=== PATIENT | female | born 2000 | race Caucasian/White ===

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

== ENCOUNTER 2021-04-03 17:58 | Emergency (ER) | payer MEDICAID ==
[2021-04-03] MEDS ORDERED: Sodium Chloride 0.9% 1,000 ML IV ONE (18:53)
[2021-04-03] MEDS ORDERED: Metoclopramide 10 MG/2 ML SDV IVPUSH ONE (18:53)
[2021-04-03] MEDS ORDERED: HYDROmorphone 0.5 MG/0.5 ML Syringe IVPUSH ONE (18:53)
[2021-04-03] MEDS ORDERED: diphenhydrAMINE 50 MG/ML SDV IVPUSH ONE (18:53)
--- NOTE | 2021-04-03 19:55 | EDM.PDOC ---
ED HPI GENERAL MEDICAL PROBLEM - General Chief Complaint: Headache Stated Complaint: MIGRAINE Time Seen by Provider: 04/03/21 18:36 Source of Information: Reports: Patient History Limitations: Reports: No Limitations - History of Present Illness INITIAL COMMENTS - FREE TEXT/NARRATIVE: 21-year-old female presents the emergency department today with complaints of migraine headache that started 5 hours ago. Patient states that she took some Tylenol and has been laying in a dark room with no relief. She states that she does have a history of migraine headaches and it is located on the right side of her head which is typical. She does have photophobia and some phonophobia. She states that she had brief loss of speech earlier today when talking on the telephone which is not normal with her migraine headaches. Patient is in her third trimester and states she is 35 weeks today. She states that her headaches eased up during her second trimester however they have been the worst of recent. She states she is otherwise healthy and has had a healthy thus far. 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 - Physical Exam Exam: See Below Exam Limited By: No Limitations General Appearance: Alert, WD/WN, No Apparent Distress Eye Exam: Bilateral Eye: EOMI, PERRL Ears: Normal External Exam, Hearing Grossly Normal Nose: Normal Inspection Throat/Mouth: Normal Inspection, Normal Lips, Normal Voice, No Airway Compromise Head Exam: Atraumatic, Normocephalic Neck: Normal Inspection, Supple Respiratory/Chest: No Respiratory Distress, Lungs Clear, Normal Breath Sounds, No Accessory Muscle Use, Chest Non-Tender Cardiovascular: Normal Peripheral Pulses, Regular Rate, Rhythm, No Edema, No Murmur GI/Abdominal: Normal Bowel Sounds (Female) Exam: Deferred Rectal (Female) Exam: Deferred Neuro Exam (Abbreviated): Alert, Oriented, CN II-XII Intact, Normal Cognition Back Exam: Normal Inspection Extremities: Normal Inspection, Normal Range of Motion, Non-Tender, No Pedal Edema, Normal Capillary Refill Psychiatric: Normal Affect, Normal Mood Skin Exam: Warm, Dry, Intact, Normal Color, No Rash Course - Vital Signs Text/Narrative:: As stated above, patient presents with a migraine headache located in the right frontal/temporal area. She states she does have photophobia, phonophobia and floaters noted. Complete neuro exam is unremarkable. Discussed with the patient the fact that due to the changes in the symptoms of her migraines normally we would CT scan her head however due to the fact that she is 35 weeks she elects not to have this completed due to the risks of radiation exposure to the unborn child. Physical exam is otherwise unremarkable and she is hemodynamically stable. Will medicate the patient with a liter of normal saline, Benadryl, Reglan and Dilaudid. Last Recorded V/S: Last Vital Signs Temp 97.5 F 04/03/21 18:23 Pulse 97 04/03/21 18:23 Resp 18 04/03/21 18:23 BP 116/71 04/03/21 18:23 Pulse Ox 95 04/03/21 18:23 - Orders/Labs/Meds Orders: Active Orders 24 hr Category Date Time Status UA RFX CATHRYN AND CULT IF INDIC [URIN] Stat Lab 04/03/21 19:01 Ordered Magnesium Sulfate/Water [Magnesium Sulfate in Water 4 Med 04/03/21 20:30 Active GM/50 ML] 4 gm Premix Bag 1 bag IV ONETIME Medication Orders Magnesium Sulfate 4 gm/ Premix 50 mls @ 12.5 mls/hr IV ONETIME ONE Stop: 04/04/21 00:29 Last Admin: 04/03/21 20:38 Dose: 12.5 mls/hr Documented by: CARY Labs: Laboratory Tests 04/03/21 04/03/21 Range/Units 18:55 18:55 WBC 9.92 (3.98-10.04) K/mm3 RBC 3.85 L (3.98-5.22) M/mm3 Hgb 11.8 (11.2-15.7) gm/dl Hct 36.5 (34.1-44.9) % MCV 94.8 D (79.4-94.8) fl MCH 30.6 (25.6-32.2) pg MCHC 32.3 (32.2-35.5) g/dl RDW Std Deviation 41.9 (36.4-46.3) fL Plt Count 199 (182-369) K/mm3 MPV 9.9 (9.4-12.3) fl Neut % (Auto) 67.7 (34.0-71.1) % Lymph % (Auto) 18.4 L (19.3-51.7) % [place] % (Auto) 10.4 (4.7-12.5) % Eos % (Auto) 2.9 (0.7-5.8) Baso % (Auto) 0.1 (0.1-1.2) % Neut # (Auto) 6.71 H (1.56-6.13) K/mm3 Lymph # (Auto) 1.83 (1.18-3.74) K/mm3 [place] # (Auto) 1.03 H (0.24-0.36) K/mm3 Eos # (Auto) 0.29 (0.04-0.36) K/mm3 Baso # (Auto) 0.01 (0.01-0.08) K/mm3 Sodium 138 (136-145) mEq/L Potassium 3.5 (3.5-5.1) mEq/L Chloride 104 (98-107) mEq/L Carbon Dioxide 23 (21-32) mEq/L Anion Gap 14.5 (5-15) BUN 7 (7-18) mg/dL Creatinine 0.5 L (0.55-1.02) mg/dL Est Cr Clr Drug Dosing 194.08 mL/min Estimated GFR (MDRD) > 60 (>60) mL/min BUN/Creatinine Ratio 14.0 (14-18) Glucose 74 (70-99) mg/dL Calcium 8.0 L (8.5-10.1) mg/dL Magnesium 1.5 L (1.8-2.4) mg/dL Total Bilirubin 0.3 (0.2-1.0) mg/dL AST 12 L (15-37) U/L ALT 12 L (14-59) U/L Alkaline Phosphatase 83 (46-116) U/L Total Protein 5.9 L (6.4-8.2) g/dl Albumin 2.6 L (3.4-5.0) g/dl Globulin 3.3 gm/dL Albumin/Globulin Ratio 0.8 L (1-2) Meds: Medications Generic Name Dose Route Start Last Admin Trade Name Freq PRN Reason Stop Dose Admin Magnesium Sulfate 4 gm/ Premix 50 mls @ 12.5 mls/hr 04/03/21 20:30 04/03/21 20:38 IV 04/04/21 00:29 12.5 mls/hr ONETIME ONE Administration Discontinued Medications Generic Name Dose Route Start Last Admin Trade Name Freq PRN Reason Stop Dose Admin Calcium Carbonate/Glycine 1,000 mg 04/03/21 20:39 04/03/21 21:06 Calcium Carbonate 500 Mg Tab.Chew PO 04/03/21 20:40 1,000 mg ONETIME ONE Administration Diphenhydramine HCl 25 mg 04/03/21 18:53 04/03/21 19:31 Diphenhydramine 50 Mg/Ml Sdv IVPUSH 04/03/21 18:54 25 mg ONETIME ONE Administration Hydromorphone HCl 0.5 mg 04/03/21 18:53 04/03/21 19:32 Hydromorphone 0.5 Mg/0.5 Ml Syringe IVPUSH 04/03/21 18:54 0.5 mg ONETIME ONE Administration Sodium Chloride 1,000 mls @ 999 mls/hr 04/03/21 18:53 04/03/21 19:30 Normal Saline IV 04/03/21 19:53 999 mls/hr ONETIME ONE Administration Metoclopramide HCl 5 mg 04/03/21 18:53 04/03/21 19:30 Metoclopramide 10 Mg/2 Ml Sdv IVPUSH 04/03/21 18:54 5 mg ONETIME ONE Administration - Re-Assessments/Exams Free Text/Narrative Re-Assessment/Exam: 04/03/21 20:41 Hematology is essentially unremarkable Chemistry reveals sodium of 138, potassium 3.5, BUN 7, creatinine 0.5, GFR greater than 60, glucose 74, magnesium 1.5 Patient states her headache pain is down to 2 out of 10 and she is feeling much better. We will medicate the patient with 4 g of mag IV and then allow her to be discharged home. Departure - Departure Time of Disposition: 22:46 Disposition: Home, Self-Care 01 Condition: Good Clinical Impression: Migraine, Hypomagnesemia - Discharge Information Instructions: Migraine Headache, [id number], Hypomagnesemia Referrals: Elaine Shaffer PA-C [Primary Care Provider] - Forms: ED Department Discharge Additional Instructions: You were seen in the emergency department today with a migraine headache. Lab studies were completed. He received IV fluids and medications to abort your headache which did seem to help. Lab studies revealed that your magnesium level was significantly low. You did receive IV magnesium replacement today. Recommend eating a diet rich in magnesium. Also recommend talking to your O B/PAGINATOR regarding magnesium supplementation. I suspect part of your issues with migraine headaches is due to low magnesium levels. Should your condition worsen or change, do not hesitate returning to the emergency department. Sepsis Event Note (ED) - Focused Exam Vital Signs: Vital Signs Temp Pulse Resp BP Pulse Ox 04/03/21 18:23 97.5 F 97 18 116/71 95 - My Orders Last 24 Hours: My Active Orders 04/03/21 19:01 UA RFX CATHRYN AND CULT IF INDIC [URIN] Stat 04/03/21 20:30 Magnesium Sulfate/Water [Magnesium Sulfate in Water 4 GM/50 ML] 4 gm Premix Bag 1 bag IV ONETIME - Assessment/Plan Last 24 Hours: My Active Orders 04/03/21 19:01 UA RFX ACTHRYN AND CULT IF INDIC [URIN] Stat 04/03/21 20:30 Magnesium Sulfate/Water [Magnesium Sulfate in Water 4 GM/50 ML] 4 gm Premix Bag 1 bag IV ONETIME
[2021-04-03] MEDS ORDERED: Magnesium Sulfate/Water 4 GM in Premix Bag 1 BAG IV ONE (20:30)
[2021-04-03] MEDS ORDERED: Calcium Carbonate 500 MG Tab.Chew PO ONE (20:39)
== END 2021-04-03 22:50 | disposition home or self-care (01) ==
LOC: JD.ED 17:58
DX: G43.909 Migraine, unspecified, not intractable, without status migrainosus (principal); E83.42 Hypomagnesemia
CPT/HCPCS: 36415; 80053; 83735; 85025; 96365; 96366; 96375; 99283; A9270; J1170; J1200; J2765; J3475; J7030

== ENCOUNTER 2021-05-05 17:57 | Inpatient (IN) | payer MEDICAID ==
[2021-05-05] MEDS ORDERED: Nalbuphine 10 MG/1 ML Vial IVPUSH PRN (19:12)
[2021-05-05] MEDS ORDERED: Oxytocin/Lactated Ringers 10 UNIT/1,000 ML BAG IV SCH ×2 (19:15)
[2021-05-05] MEDS: Lactated Ringers 1,000 ML IV SCH (20:32)
[2021-05-05] MEDS: Calcium Carbonate 500 MG Tab.Chew PO PRN (23:07)
[2021-05-05] MEDS: Sodium Chloride 0.9% 10 ML Syringe FLUSH SCH (23:45)
[2021-05-06] MEDS: Calcium Carbonate 500 MG Tab.Chew PO PRN ×2 (04:28→11:58)
[2021-05-06] MEDS ORDERED: Acetaminophen 325 MG Tab PO PRN ×2 (05:56→19:25)
[2021-05-06] MEDS: Oxytocin/Lactated Ringers 20 UNIT/1,000 ML BAG IV SCH ×2 (09:08→18:26)
--- NOTE | 2021-05-06 09:13 | PCM.LDHP ---
L&D History of Present Illness - General Date of Service: 05/06/21 Admit Problem/Dx: Patient Status Order with Admit Dx/Problem 05/05/21 19:12 Patient Status [ADT] Routine Admission Diagnosis/Problem Admission Diagnosis/Problem 05/06/21 09:05 Timo is a 21-year-old 1 para 0 female admitted the evening of 05/05/2021 at 39-4/7 weeks gestational age with an TEO of 05/08/2021 for elective induction of labor. 05/06/21 09:14 Source of Information: Patient History Limitations: Reports: No Limitations - History of Present Illness Introduction:: Timo is a 21-year-old 1 para 0 female admitted the evening of 05/05/2021 at 39-4/7 weeks gestational age with an TEO of 05/08/2021 for elective induction of labor. The procedure and process of labor induction was discussed with the patient. Including risk, benefits, alternatives of care including allowing for natural onset of labor. She appears understand and wishes to proceed. OPERATING ROOM NURSE history: 1 para 0. Patient had menarche at age 15. Cycles q. months. Duration 7 days. Not using any control at the time of conception. Her TEO is set by a certain last menstrual period starting 08/01/2020. No STIs or abnormal Pap smears noted. Patient has not had a Pap smear because of age. course: Patient was initially seen for care by Dr. Chavez at [facility] for the first 2 visits. Do not have records of those 2 visits. She transferred care to our clinic at 19 weeks gestational age. From that time on she was seen on a regular basis. Her weight gain 211.6pounds to 269.6 pounds for a 58 pound increase. Her vital signs remained stable throughout the course and her fundal height growth was appropriate. She had ultrasounds x2 at 28-4/7 weeks and again at 25-1/7 weeks. This for ex tremities not been adequately seen on first evaluation. She is group B strep negative. She declined genetic testing. She plans to breast-feed. Tdap and flu shot were given on 03/05/2021. Laboratory testing in shows blood to be O+ with a negative antibody screen at first visit. Her hemoglobin was 14.6 g/dL and platelets were 194,000 at that time. RPR is nonreactive. Urine culture was negative. Hepatitis B surface antigen was negative as was HIV titer. Chlamydia gonorrhea and HCV antibody titers were negative. TSH done on 01/14/2021 was 1.002mg/L. Second trimester labs showed hemoglobin 13.6 platelets 246,001-hour GTT of 87. Her group B strep screen was negative. Allergies: None Medications: 1. vitamins 1 daily 2. Promethazine HCL 25 mg tablets as needed every 6 hours for nausea 3. Tylenol 3 as needed for headaches Past medical history: Unremarkable Past surgical history: 1. Tonsillectomy 2015 2. Knee surgery 2013 Family history: Mother is alive and well at age 42. Father is alive and well at age 52. Paternal grandfather is secondary to alcohol complications in his 30s. Maternal grandmother is alive and well. Paternal grandfather is , cause unknown. Paternal grandmother is alive and well. 1 brother is alive and well. Patient denies any family history of bleeding, clotting disorders, anesthesia related problems or related conditions. Social history: Patient is . Lives in [place] with her Jacob. Sanderson he is incarcerated at the present time. 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 She is a high school graduate. She does not use any significant muscle alcohol, drugs or. Review of systems: In general patient has no complaints. Baby has been active. Skin: Negative Lungs: No infectious symptoms or shortness of breath Cardiovascular: No chest pain or exercise intolerance Breasts: No lumps, changes in size, pain, dimpling, discharge or axillary or supraclavicular concerns. GI: Negative : Body habitus changes associated with . Musculoskeletal: Negative Neurological: Negative Physical exam: In general the patient is well-developed, well-nourished, pleasant female of stated age in no acute distress. On last evaluation in clinic patient's blood pressure was 102/68. Weight was 269.6 pounds with a pregravid weight reported at 211.6 pounds. Skin is warm dry without lesions. HEENT, neck and back within normal limits. Lungs are clear with good breath sounds in all lung lopez. Cardiovascular exam shows regular and rhythm without murmurs. Breast exam done early in by patient's report not repeated at this time. Patient does plan to breast-feed. Abdomen is gravid with last fundal height in clinic at 39 cm.. Genital cervix on last evaluation clinic was 2 cm, 80% effaced, soft, midp osterior position, -3 station. Extremities and neurological exam are grossly within normal limits. Pain Score: 5 - Related Data Allergies/Adverse Reactions: Allergies Allergy/AdvReac Type Severity Reaction Status Date / Time No Known Allergies Allergy Verified 05/05/21 22:44 Home Medications: Home Meds Pnv No.95/Ferrous Fum/Folic AC [ Caplet] 1 tab PO DAILY 12/26/20 [History] Docusate Sodium [Colace] 100 mg PO DAILY 05/02/21 [History] Magnesium 200 mg PO DAILY 05/02/21 [History] Past Medical History OPERATING ROOM NURSE History: Reports: Neurological History: Reports: Migraines Psychiatric History: Reports: None Endocrine/Metabolic History: Reports: Hypomagnesemia - Infectious Disease History Infectious Disease History: Reports: None - Past Surgical History HEENT Surgical History: Reports: Adenoidectomy, Tonsillectomy Other HEENT Surgeries/Procedures: 16 years old for tonsillectomy and adenoidectomy Musculoskeletal Surgical History: Reports: Arthroscopic Procedure Other Musculoskeletal Surgeries/Procedures:: 2014 scope on knee Social & Family History - Family History Family Medical History: Unobtainable - Tobacco Use Tobacco Use Status *Q: Light Tobacco User Years of Tobacco use: 1 Packs/Tins Daily: 0 Used Tobacco, but Quit: Yes Month/Year Tobacco Last Used: 2020 Second Hand Smoke Exposure: No - Recreational Drug Use Recreational Drug Use: No H&P Review of Systems - Review of Systems: Review Of Systems: See Below L&D Exam - Exam Exam: See Below - Vital Signs Vital Signs: Last Vital Signs Temp 36.9 C 05/05/21 19:45 Pulse 96 05/05/21 19:45 Resp 16 05/05/21 19:45 BP 127/85 05/05/21 19:45 Pulse Ox 98 05/05/21 19:45 Weight: 124.5 kg - Patient Data Lab Results Last 24 hrs: Laboratory Results - last 24 hr 05/05/21 05/05/21 05/05/21 Range/Units 19:20 19:40 19:40 WBC 9.05 (3.98-10.04) K/mm3 RBC 3.80 L (3.98-5.22) M/mm3 Hgb 11.9 (11.2-15.7) gm/dl Hct 36.0 (34.1-44.9) % MCV 94.7 (79.4-94.8) fl MCH 31.3 (25.6-32.2) pg MCHC 33.1 (32.2-35.5) g/dl RDW Std Deviation 47.9 H (36.4-46.3) fL Plt Count 196 (182-369) K/mm3 MPV 10.3 (9.4-12.3) fl Neut % (Auto) 65.0 (34.0-71.1) % Lymph % (Auto) 18.8 L (19.3-51.7) % Furn[place] % (Auto) 13.3 H (4.7-12.5) % Eos % (Auto) 2.5 (0.7-5.8) Baso % (Auto) 0.1 (0.1-1.2) % Neut # (Auto) 5.88 (1.56-6.13) K/mm3 Lymph # (Auto) 1.70 (1.18-3.74) K/mm3 [place] # (Auto) 1.20 H (0.24-0.36) K/mm3 Eos # (Auto) 0.23 (0.04-0.36) K/mm3 Baso # (Auto) 0.01 (0.01-0.08) K/mm3 Magnesium (1.8-2.4) mg/dL RPR Non-reactive (NONREACTIVE) SARS-CoV-2 RNA (ANGEL) Negative (NEGATIVE) Blood Type Gel Antibody Screen 05/05/21 05/05/21 Range/Units 19:40 19:40 WBC (3.98-10.04) K/mm3 RBC (3.98-5.22) M/mm3 Hgb (11.2-15.7) gm/dl Hct (34.1-44.9) % MCV (79.4-94.8) fl MCH (25.6-32.2) pg MCHC (32.2-35.5) g/dl RDW Std Deviation (36.4-46.3) fL Plt Count (182-369) K/mm3 MPV (9.4-12.3) fl Neut % (Auto) (34.0-71.1) % Lymph % (Auto) (19.3-51.7) % Furn[place] % (Auto) (4.7-12.5) % Eos % (Auto) (0.7-5.8) Baso % (Auto) (0.1-1.2) % Neut # (Auto) (1.56-6.13) K/mm3 Lymph # (Auto) (1.18-3.74) K/mm3 Furn[place] # (Auto) (0.24-0.36) K/mm3 Eos # (Auto) (0.04-0.36) K/mm3 Baso # (Auto) (0.01-0.08) K/mm3 Magnesium 1.7 L (1.8-2.4) mg/dL RPR (NONREACTIVE) SARS-CoV-2 RNA (ANGEL) (NEGATIVE) Blood Type O POSITIVE Gel Antibody Screen Negative Result Diagrams: 05/05/21 19:40 - Problem List (1) 39 weeks gestation of SNOMED Code(s): 77797306 ICD Code: Z3A.39 - 39 WEEKS GESTATION OF Status: Acute Current Visit: Yes Problem List Initiated/Reviewed/Updated: Yes Orders Last 24hrs: Active Orders 24 hr Category Date Time Status Patient Status [ADT] Routine ADT 05/05/21 19:12 Active Activity as Tolerated [RC] PFP Care 05/05/21 19:12 Active Communication Order [RC] ASDIRECTED Care 05/05/21 19:12 Active Notify Provider [RC] PFP Care 05/05/21 19:12 Active Notify Provider [RC] PRN Care 05/05/21 19:12 Active Peripheral IV Care [RC] Q4HR Care 05/05/21 19:13 Active Regular Diet [DIET] Diet 05/06/21 Breakfast Active Acetaminophen [TylenoL] Med 05/06/21 05:56 Active 650 mg PO Q4H PRN Calcium Carbonate [Tums] Med 05/05/21 22:29 Active 1,000 mg PO Q2HR PRN Lactated Ringers [Ringers, Lactated] 1,000 ml Med 05/05/21 19:15 Active IV ASDIRECTED Nalbuphine [Nubain] Med 05/05/21 19:12 Active 10 mg IVPUSH Q2H PRN Oxytocin/Lactated Ringers [Pitocin in LR 10 Units/1,000 Med 05/05/21 19:15 Active ML] 10 unit in 1,000 ml IV .CONTINUOUS Oxytocin/Lactated Ringers [Pitocin in LR 10 Units/1,000 Med 05/05/21 19:15 Active ML] 10 unit in 1,000 ml IV TITRATE Oxytocin/Lactated Ringers [Pitocin in LR 20 Units/1,000 Med 05/06/21 09:00 Active ML] 20 unit in 1,000 ml IV TITRATE Sodium Chloride 0.9% [Saline Flush] Med 05/05/21 21:00 Active 10 ml FLUSH 0900,2100 Electronic Heart Tones Ext w TOCO [WOMSER] Oth 05/05/21 19:12 Ordered Routine Electronic Heart Tones Internal [WOMSER] Per Unit Ot 05/05/21 19:12 Ordered Routine Peripheral IV Insertion Adult [OM.PC] Routine Oth 05/05/21 19:12 Ordered Resuscitation Status Routine Resus Stat 05/05/21 19:12 Ordered Medication Orders Acetaminophen (Acetaminophen 325 Mg Tab) 650 mg PO Q4H PRN PRN Reason: Pain Last Admin: 05/06/21 06:00 Dose: 650 mg Documented by: FABBY Calcium Carbonate/Glycine (Calcium Carbonate 500 Mg Tab.Chew) 1,000 mg PO Q2HR PRN PRN Reason: Indigestion Last Admin: 05/06/21 04:28 Dose: 1,000 mg Documented by: Admin: 05/05/21 23:07 Dose: 1,000 mg Documented by: KAT Oxytocin/Lactated Ringer's (Pitocin In Lr 10 Units/1,000 Ml) 10 unit in 1,000 mls @ 12 mls/hr IV TITRATE ANALILIA; Protocol Last Titration: 05/06/21 06:30 Dose: 20 munits/min, 120 mls/hr Documented by: Titration: 05/06/21 04:20 Dose: 18 munits/min, 108 mls/hr Documented by: Titration: 05/06/21 02:30 Dose: 16 munits/min, 96 mls/hr Documented by: Titration: 05/06/21 01:30 Dose: 14 munits/min, 84 mls/hr Documented by: Titration: 05/06/21 01:00 Dose: 12 munits/min, 72 mls/hr Documented by: Titration: 05/06/21 00:15 Dose: 10 munits/min, 60 mls/hr Documented by: Titration: 05/05/21 23:45 Dose: 8 munits/min, 48 mls/hr Documented by: Titration: 05/05/21 21:30 Dose: 6 munits/min, 36 mls/hr Documented by: Titration: 05/05/21 21:00 Dose: 4 munits/min, 24 mls/hr Documented by: Admin: 05/05/21 20:41 Dose: 2 munits/min, 12 mls/hr Documented by: FABBY Oxytocin/Lactated Ringer's (Pitocin In Lr 10 Units/1,000 Ml) 10 unit in 1,000 mls @ 100 mls/hr IV .CONTINUOUS ANALILIA Lactated Ringer's (Ringers, Lactated) 1,000 mls @ 100 mls/hr IV ASDIRECTED [facility] Last Admin: 05/05/21 20:32 Dose: 100 mls/hr Documented by: FABBY Oxytocin/Lactated Ringer's (Pitocin In Lr 20 Units/1,000 Ml) 20 unit in 1,000 mls @ 66 mls/hr IV TITRATE ANALILIA; Protocol Nalbuphine HCl (Nalbuphine 10 Mg/1 Ml Vial) 10 mg IVPUSH Q2H PRN PRN Reason: Pain Sodium Chloride (Sodium Chloride 0.9% 10 Ml Syringe) 10 ml FLUSH 0900,2100 [facility] Last Admin: 05/05/21 23:45 Dose: Not Given Documented by: FABBY Assessment/Plan Comment:: 1. Timo is a 21-year-old 1 para 0 female admitted the evening of 2020 at 39-4/7 weeks gestational age with an TEO of 05/08/2021 for elective induction of labor. 2. Group B strep negative 3. Patient desires natural labor 4. Patient plans to breast-feed 5. Risk factors for the surgery include increased weight less than optimal social situation. Plan: 1. Pitocin induction to be followed by AROM augmentation. Procedure, risk, benefits, terms of care discussed with patient. She appears understand and wished to proceed 2. Near continuous electronic monitoring 3. Support breast-feeding decision 4. Admission labs to include CBC, COVID-19 testing, RPR per protocol
[2021-05-06] MEDS: Sodium Chloride 0.9% 10 ML Syringe FLUSH SCH (10:13)
--- NOTE | 2021-05-06 11:38 | PCM.PREANE ---
Preanesthetic Assessment - Procedure Proposed Procedure: kai - Anesthesia/Transfusion/Family Hx Anesthesia History: Prior Anesthesia Without Reaction Family History of Anesthesia Reaction: No Transfusion History: No Prior Transfusion(s) - Review of Systems General: No Symptoms Pulmonary: No Symptoms Cardiovascular: No Symptoms Gastrointestinal: No Symptoms Neurological: No Symptoms Other: Reports: None - Physical Assessment Vital Signs: Last Vital Signs Temp 98.5 F 05/05/21 19:45 Pulse 96 05/05/21 19:45 Resp 16 05/05/21 19:45 BP 127/85 05/05/21 19:45 Pulse Ox 98 05/05/21 19:45 Height: 5 ft 10 in Weight: 124.5 kg ASA Class: 3 Mental Status: Alert & Oriented x3 Airway Class: Mallampati = 1 Dentition: Reports: Normal Dentition Thyro-Mental Finger Breadths: 3 Mouth Opening Finger Breadths: 3 ROM/Head Extension: Full Lungs: Clear to Auscultation, Normal Respiratory Effort Cardiovascular: Regular Rate, Regular Rhythm - Lab Values: Laboratory Last Values WBC 9.05 K/mm3 (3.98-10.04) 05/05/21 19:40 RBC 3.80 M/mm3 (3.98-5.22) L 05/05/21 19:40 Hgb 11.9 gm/dl (11.2-15.7) 05/05/21 19:40 Hct 36.0 % (34.1-44.9) 05/05/21 19:40 MCV 94.7 fl (79.4-94.8) 05/05/21 19:40 MCH 31.3 pg (25.6-32.2) 05/05/21 19:40 MCHC 33.1 g/dl (32.2-35.5) 05/05/21 19:40 RDW Std Deviation 47.9 fL (36.4-46.3) H 05/05/21 19:40 Plt Count 196 K/mm3 (182-369) 05/05/21 19:40 MPV 10.3 fl (9.4-12.3) 05/05/21 19:40 Neut % (Auto) 65.0 % (34.0-71.1) 05/05/21 19:40 Lymph % (Auto) 18.8 % (19.3-51.7) L 05/05/21 19:40 Saunders % (Auto) 13.3 % (4.7-12.5) H 05/05/21 19:40 Eos % (Auto) 2.5 (0.7-5.8) 05/05/21 19:40 Baso % (Auto) 0.1 % (0.1-1.2) 05/05/21 19:40 Neut # (Auto) 5.88 K/mm3 (1.56-6.13) 05/05/21 19:40 Lymph # (Auto) 1.70 K/mm3 (1.18-3.74) 05/05/21 19:40 Saunders # (Auto) 1.20 K/mm3 (0.24-0.36) H 05/05/21 19:40 Eos # (Auto) 0.23 K/mm3 (0.04-0.36) 05/05/21 19:40 Baso # (Auto) 0.01 K/mm3 (0.01-0.08) 05/05/21 19:40 Magnesium 1.7 mg/dL (1.8-2.4) L 05/05/21 19:40 RPR Non-reactive (NONREACTIVE) 05/05/21 19:40 SARS-CoV-2 RNA (ANGEL) Negative (NEGATIVE) 05/05/21 19:20 Blood Type O POSITIVE 05/05/21 19:40 Gel Antibody Screen Negative 05/05/21 19:40 - Allergies Allergies/Adverse Reactions: Allergies Allergy/AdvReac Type Severity Reaction Status Date / Time No Known Allergies Allergy Verified 05/05/21 22:44 - Blood Blood Available: No - Acknowledgements Anesthesia Type Planned: Epidural Pt an Appropriate Candidate for the Planned Anesthesia: Yes Alternatives and Risks of Anesthesia Discussed w Pt/Guardian: Yes Pt/Guardian Understands and Agrees with Anesthesia Plan: Yes PreAnesthesia Questionnaire Cardiovascular History: Reports: None Respiratory History: Reports: None Gastrointestinal History: Reports: GERD (with preg) PSYCHOLOGY PHYSICIAN History: Reports: : 1 Para: 0 Musculoskeletal History: Reports: None Neurological History: Reports: Migraines Psychiatric History: Reports: None Endocrine/Metabolic History: Reports: Hypomagnesemia, Obesity/BMI 30+ Oncologic (Cancer) History: Reports: None - Infectious Disease History Infectious Disease History: Reports: None - Past Surgical History HEENT Surgical History: Reports: Adenoidectomy, Tonsillectomy Other HEENT Surgeries/Procedures: 16 years old for tonsillectomy and adenoidectomy Musculoskeletal Surgical History: Reports: Arthroscopic Procedure Other Musculoskeletal Surgeries/Procedures:: 2013 scope on knee - SUBSTANCE USE Tobacco Use Status *Q: Former Tobacco User Tobacco Use Within Last Twelve Months: Vaping Second Hand Smoke Exposure: No Days Per Week of Alcohol Use: 0 Recreational Drug Use History: No - HOME MEDS Home Medications: Home Meds Pnv No.95/Ferrous Fum/Folic AC [ Caplet] 1 tab PO DAILY 12/26/20 [History] Docusate Sodium [Colace] 100 mg PO DAILY 05/02/21 [History] Magnesium 200 mg PO DAILY 05/02/21 [History] - CURRENT (IN HOUSE) MEDS Current Meds: Current Medications Acetaminophen (Acetaminophen 325 Mg Tab) 650 mg PO Q4H PRN PRN Reason: Pain Last Admin: 05/06/21 06:00 Dose: 650 mg Documented by: Calcium Carbonate/Glycine (Calcium Carbonate 500 Mg Tab.Chew) 1,000 mg PO Q2HR PRN PRN Reason: Indigestion Last Admin: 05/06/21 04:28 Dose: 1,000 mg Documented by: Oxytocin/Lactated Ringer's (Pitocin In Lr 10 Units/1,000 Ml) 10 unit in 1,000 mls @ 12 mls/hr IV TITRATE ANALILIA; Protocol Last Titration: 05/06/21 06:30 Dose: 20 munits/min, 120 mls/hr Documented by: Oxytocin/Lactated Ringer's (Pitocin In Lr 10 Units/1,000 Ml) 10 unit in 1,000 mls @ 100 mls/hr IV .CONTINUOUS ANALILIA Lactated Ringer's (Ringers, Lactated) 1,000 mls @ 100 mls/hr IV ASDIRECTED ANALILIA Last Admin: 05/05/21 20:32 Dose: 100 mls/hr Documented by: Oxytocin/Lactated Ringer's (Pitocin In Lr 20 Units/1,000 Ml) 20 unit in 1,000 mls @ 66 mls/hr IV TITRATE ANALILIA; Protocol Last Admin: 05/06/21 09:08 Dose: 60 mls/hr Documented by: Nalbuphine HCl (Nalbuphine 10 Mg/1 Ml Vial) 10 mg IVPUSH Q2H PRN PRN Reason: Pain Sodium Chloride (Sodium Chloride 0.9% 10 Ml Syringe) 10 ml FLUSH 0900,2100 ANALILIA Last Admin: 05/06/21 10:13 Dose: Not Given Documented by:
[2021-05-06] MEDS ORDERED: Bupivacaine 0.25% 10 ML SDV ONE (13:35)
[2021-05-06] MEDS ORDERED: diphenhydrAMINE 50 MG/ML SDV IVPUSH PRN (13:36)
[2021-05-06] MEDS ORDERED: fentaNYL 100 MCG/2 ML SDV EPIDUR PRN (13:36)
[2021-05-06] MEDS ORDERED: Bupivacaine/fentaNYL/NS 100 ML Bag EPIDUR PRN (13:36)
[2021-05-06] MEDS ORDERED: ePHEDrine 50 MG/ML SDV IVPUSH PRN (13:36)
[2021-05-06] MEDS: Lactated Ringers 1,000 ML IV SCH ×2 (14:17→16:02)
--- NOTE | 2021-05-06 18:18 | PCM.SN.2 ---
- Free Text/Narrative Note: Delivery note: Stage I: Timo is a 21-year-old 1 now para 1-0-0-1 female admitted the evening of 05/05/2021 at 39-4/7 weeks gestational age with an TEO of 05/08/2021 for elective induction of labor. Cervix upon admission was 2 cm dilated. She was started on Pitocin and was advanced to achieve regular contractions. On the a.m. of 05/06/2021 she underwent AROM with resultant clear amniotic fluid. This intensified and enhanced her labor. Pitocin was maintained at approximately 20 milliunits/min. Epidural was used for labor analgesia. heart tones were reassuring throughout the labor pattern. Indwelling bladder catheter was placed and sequential pression stockings were placed after epidural was inserted. She made steady progress and by approximately 1630 hrs. she achieved complete cervical dilation. Stage II: Timo delivered a viable, humphrey, male infant named Ronal Suazo in a direct occiput anterior position over an intact perineum at 1757 hrs. on 05/06/2021. After external restitution the babies shoulders were then delivered anteriorly then posteriorly with gentle downward then upward traction. No problems were encountered. The was completely delivered and placed on mom's abdomen and was dried with a warm blanket. Umbilical cord was allowed to pulsate for approximately 3 minutes. The cord was then clamped x2 and cut by the baby's father Kin. cord had 3 vessels. Cord blood was obtained. Evaluation of the vagina and perineum showed no evidence of significant lacerations requiring suturing. The baby weighed 3930 g (8 pounds 10.6 ounces), had Apgars of 8 and 9 and a length of 21 inches. The nose and mouth were bulb suction. Pitocin was increased to 500 cc an hour using the routine infusion solution. This to increase uterine tone and decrease likelihood of bleeding. Stage III: The placenta delivered at 1801 hrs. on 05/06/2021. It was delivered in a Moreno presentation, appeared intact and complete and was discarded per patient desire. Estimate blood loss was 100 cc. Patient plans to breast-feed. Condition: Good.
[2021-05-06] MEDS ORDERED: Docusate Sodium 100 MG Cap PO PRN (19:25)
[2021-05-06] MEDS ORDERED: Benzocaine/Menthol 20%-0.5% Spray 78 GM Cannister TOP PRN (19:25)
[2021-05-06] MEDS ORDERED: Witch Hazel Medicated Pads 40/Jar TOP PRN (19:25)
[2021-05-07] MEDS: Ibuprofen 600 MG Tab PO PRN ×2 (00:22→05:16)
[2021-05-07] MEDS ORDERED: Prenatal Multivitamin with Calcium/Folic Acid/Iron Tab PO SCH (09:00)
--- NOTE | 2021-05-07 09:08 | PCM.SN.2 ---
- Free Text/Narrative Note: note: Patient is doing well in the period. Minimal lochia, voiding well, ambulated without problems. Nursing without concerns. Patient is afebrile, vital signs are stable Abdomen is flat, soft, uterus is below the umbilicus and is firm and nontender. Legs are nontender. Assessment: recovery going well. Plan: Routine care. Patient be discharged home within the next 24-48 hours.
--- NOTE | 2021-05-07 10:07 | PCM48HPAN ---
Post Anesthesia Note - EVALUATION WITHIN 48HRS OF ANESTHETIC Vital Signs in Normal Range: Yes Patient Participated in Evaluation: Yes Respiratory Function Stable: Yes Airway Patent: Yes Cardiovascular Function Stable: Yes Hydration Status Stable: Yes Pain Control Satisfactory: Yes Nausea and Vomiting Control Satisfactory: Yes Mental Status Recovered: Yes Vital Signs: Last Vital Signs Temp 98.5 F 05/05/21 19:45 Pulse 96 05/05/21 19:45 Resp 16 05/05/21 19:45 BP 127/85 05/05/21 19:45 Pulse Ox 98 05/05/21 19:45 - COMMENTS/OBSERVATIONS Free Text/Narrative:: Patient resting in bed holding baby when visiting with patient. Patient stated that she was "very happy" with her epidural and labor experience. Patient complained of mild back pain in epidural placement site but is controlled and has not gotten worse. Discussed signs and symptoms of infection, post-dural puncture headaches, post- depression, and if patient experiences increased back discomfort. Encouraged patient if any of those signs or symptoms develop to contact OB/Anesthesia so the patient can be treated accordingly if needed. Patient verbalized understanding. Patient did not voice any questions or concerns at this time. Eliana Haro, SENIOR RELATIONSHIP MANAGER
--- NOTE | 2021-05-08 05:59 | PCM.DCSUM1 ---
Discharge Summary - Hospital Course Free Text/Narrative:: Stage I: Timo is a 21-year-old 1 now para 1-0-0-1 female admitted the evening of 05/05/2021 at 39-4/7 weeks gestational age with an TEO of 05/08/2021 for elective induction of labor. Cervix upon admission was 2 cm dilated. She was started on Pitocin and was advanced to achieve regular contractions. On the a.m. of 05/06/2021 she underwent AROM with resultant clear amniotic fluid. This intensified and enhanced her labor. Pitocin was maintained at approximately 20 milliunits/min. Epidural was used for labor analgesia. heart tones were reassuring throughout the labor pattern. Indwelling bladder catheter was placed and sequential pression stockings were placed after epidural was inserted. She made steady progress and by approximately 1630 hrs. she achieved complete cervical dilation. Stage II: Timo delivered a viable, humphrey, male named Ronal Suazo in a direct occiput anterior position over an intact perineum at 1757 hrs. on 05/06/2021. After external restitution the babies shoulders were then delivered anteriorly then posteriorly with gentle downward then upward traction. No problems were encountered. The was completely delivered and placed on mom's abdomen and was dried with a warm blanket. Umbilical cord was allowed to pulsate for approximately 3 minutes. The cord was then clamped x2 and cut by the baby's father Kin. cord had 3 vessels. Cord blood was obtained. Evaluation of the vagina and perineum showed no evidence of significant lacerations requiring suturing. The baby weighed 3930 g (8 pounds 10.6 ounces), had Apgars of 8 and 9 and a length of 21 inches. The nose and mouth were bulb suction. Pitocin was increased to 500 cc an hour using the routine infusion solution. This to increase uterine tone and decrease likelihood of bleeding. Stage III: The placenta delivered at 1801 hrs. on 05/06/2021. It was delivered in a Moreno presentation, appeared intact and complete and was discarded per patient desire. Estimate blood loss was 100 cc. Patient plans to breast-feed. patient is doing well. She is nursing without concerns. She has minimal lochia, is voiding well and is ambulating without problems. She is desiring discharge home. Condition: Good. Diagnosis: Stroke: No - Discharge Data Discharge Date: 05/08/21 Discharge Disposition: Home, Self-Care 01 Condition: Good - Referral to Home Health Primary Care Physician: Mateusz Rivas MD - Discharge Diagnosis/Problem(s) (1) 39 weeks gestation of SNOMED Code(s): 25142378 ICD Code: Z3A.39 - 39 WEEKS GESTATION OF Status: Acute Current Visit: Yes - Patient Instructions Diet: Usual Diet as Tolerated (Nursing diet with increased calories and calcium is recommended) Activity: As Tolerated (No intercourse or tampons until bleeding resolves) Driving: May Drive Today Showering/Bathing: May Shower (May take a bath) Notify Provider of: Fever, Increased Pain, Swelling and Redness, Drainage - Discharge Plan Home Medications: Home Meds Pnv No.95/Ferrous Fum/Folic AC [ Caplet] 1 tab PO DAILY 12/26/20 [History] Docusate Sodium [Colace] 100 mg PO DAILY 05/02/21 [History] Magnesium 200 mg PO DAILY 05/02/21 [History] Acetaminophen [Tylenol] 650 mg PO Q4H PRN tablet 05/08/21 [Rx] Ibuprofen [Motrin] 600 mg PO Q4H PRN tablet 05/08/21 [Rx] Patient Handouts: Steps to Quit Smoking Referrals: Roger Umaña MD [Physician] - (Return to clinic[facility]2-4 weeks.) - Discharge Summary/Plan Comment DC Time >30 min.: No Total # of Minutes for Discharge Time: 10 Discharge Summary/Plan Comment: Discharge instructions: 1. Discharge home 2. Diet, activity and follow-up discussed with patient. Recommend nursing diet with increased calories and calcium. 3. Precautions given concern increased pain, bleeding, temperature, signs/symptoms of DVT/PE. 4. Medications per home medication was printed, discussed with and given to the patient. 5. Return to clinic-Dr. Umaña[facility] in 2-4 weeks. Diagnosis: Term -delivered Condition: Good - Patient Data Vitals - Most Recent: Last Vital Signs Temp 36.4 C 05/08/21 02:45 Pulse 82 05/08/21 02:45 Resp 14 05/08/21 02:45 BP 104/68 05/08/21 02:45 Pulse Ox 97 05/08/21 02:45 Weight - Most Recent: 124.5 kg Med Orders - Current: Current Medications Acetaminophen (Acetaminophen 325 Mg Tab) 650 mg PO Q4H PRN PRN Reason: mild pain or fever Benzocaine/Menthol (Benzocaine/Menthol 20%-0.5% Bittinger 78 Gm Cannister) 0 gm TOP ASDIRECTED PRN PRN Reason: Perineal Comfort Measure Last Admin: 05/06/21 20:44 Dose: 1 can Documented by: Docusate Sodium (Docusate Sodium 100 Mg Cap) 100 mg PO BID PRN PRN Reason: Constipation Last Admin: 05/07/21 00:24 Dose: 100 mg Documented by: Ibuprofen (Ibuprofen 600 Mg Tab) 600 mg PO Q4H PRN PRN Reason: Mild pain or fever Last Admin: 05/07/21 05:16 Dose: 600 mg Documented by: Prenat Multivit/Chatom/Iron/Folic Ac ( Multivitamin With Calcium/Folic Acid/Iron Tab) 1 each PO DAILY ANALILIA Last Admin: 05/07/21 08:17 Dose: 1 each Documented by: Ayo Lara (Ayo Lara Medicated Pads 40/Jar) 1 pad TOP ASDIRECTED PRN PRN Reason: Perineal Comfort Measure Last Admin: 05/06/21 20:45 Dose: 1 tub Documented by: Discontinued Medications Acetaminophen (Acetaminophen 325 Mg Tab) 650 mg PO Q4H PRN PRN Reason: Pain Last Admin: 05/06/21 06:00 Dose: 650 mg Documented by: Bupivacaine HCl (Bupivacaine 0.25% 10 Ml Sdv) 10 ml .ROUTE .STK-MED ONE Stop: 05/06/21 13:36 Calcium Carbonate/Glycine (Calcium Carbonate 500 Mg Tab.Chew) 1,000 mg PO Q2HR PRN PRN Reason: Indigestion Last Admin: 05/06/21 11:58 Dose: 1,000 mg Documented by: Diphenhydramine HCl (Diphenhydramine 50 Mg/Ml Sdv) 25 mg IVPUSH Q6H PRN PRN Reason: pruritis Ephedrine Sulfate (Ephedrine 50 Mg/Ml Sdv) 5 mg IVPUSH ASDIRECTED PRN PRN Reason: Hypotension Fentanyl (Fentanyl 100 Mcg/2 Ml Sdv) 100 mcg EPIDUR Q3H PRN PRN Reason: Pain Last Admin: 05/06/21 13:55 Dose: 100 mcg Documented by: Fentanyl/Bupivacaine HCl (Bupivacaine/Fentanyl/Ns 100 Ml Bag) 100 ml EPIDUR ASDIRECTED PRN PRN Reason: Pain Last Admin: 05/06/21 13:55 Dose: 100 ml Documented by: Oxytocin/Lactated Ringer's (Pitocin In Lr 10 Units/1,000 Ml) 10 unit in 1,000 mls @ 12 mls/hr IV TITRATE ANALILIA; Protocol Last Titration: 05/06/21 06:30 Dose: 20 munits/min, 120 mls/hr Documented by: Oxytocin/Lactated Ringer's (Pitocin In Lr 10 Units/1,000 Ml) 10 unit in 1,000 mls @ 100 mls/hr IV .CONTINUOUS ANALILIA Lactated Ringer's (Ringers, Lactated) 1,000 mls @ 100 mls/hr IV ASDIRECTED ANALILIA Last Admin: 05/06/21 16:02 Dose: 100 mls/hr Documented by: Oxytocin/Lactated Ringer's (Pitocin In Lr 20 Units/1,000 Ml) 20 unit in 1,000 m ls @ 66 mls/hr IV TITRATE ANALILIA; Protocol Last Admin: 05/06/21 18:26 Dose: 66 mls/hr Documented by: Nalbuphine HCl (Nalbuphine 10 Mg/1 Ml Vial) 10 mg IVPUSH Q2H PRN PRN Reason: Pain Sodium Chloride (Sodium Chloride 0.9% 10 Ml Syringe) 10 ml FLUSH 0900,2100 ANALILIA Last Admin: 05/06/21 10:13 Dose: Not Given Documented by:
== END 2021-05-08 10:25 | disposition home or self-care (01) | DRG 807 ==
LOC: JD.OB 17:57 → OBSVTOIN 05-06 17:57 → JD.OB 05-06 17:58
PROVIDERS: ADMIT Obstetrics & Gynecology; ATTEND Obstetrics & Gynecology
PROC: 10E0XZZ Delivery of Products of Conception, External Approach (ICD-10-PCS; principal; 2021-05-06)
PROC: 10907ZC Drainage of Amniotic Fluid, Therapeutic from Products of Conception, Via Natural or Artificial Opening (ICD-10-PCS; 2021-05-06)
PROC: 3E0R3BZ Introduction of Anesthetic Agent into Spinal Canal, Percutaneous Approach (ICD-10-PCS; 2021-05-06)
PROC: 00HU33Z Insertion of Infusion Device into Spinal Canal, Percutaneous Approach (ICD-10-PCS; 2021-05-06)
DX: O80 Encounter for full-term uncomplicated delivery (principal); Z37.0 Single live birth; Z3A.39 39 weeks gestation of pregnancy; Z20.822 Contact with and (suspected) exposure to COVID-19
CPT/HCPCS: 01967; 36415; 51702; 59025; 59409; 83735; 85025; 86592; 86850; 86900; 86901; A9270-GY; J2590; J3010; J3490; J7120; U0002

== ENCOUNTER 2021-07-23 19:56 | Observation (INO) | payer MEDICAID ==
[2021-07-23] MEDS ORDERED: Sodium Chloride 0.9% 10 ML Syringe FLUSH PRN (20:33)
[2021-07-23] MEDS ORDERED: Sodium Chloride 0.9% 1,000 ML IV STA (20:33)
[2021-07-23] MEDS ORDERED: Ondansetron 4 MG/2 ML SDV IVPUSH ONE (20:33)
[2021-07-23] MEDS ORDERED: HYDROmorphone 0.5 MG/0.5 ML Syringe IVPUSH ONE (20:35)
[2021-07-23] MEDS ORDERED: Iopamidol 612 MG/ML 100 ML Bottle IVPUSH ONE (22:27)
[2021-07-23] MEDS ORDERED: Diatrizoate Meglumine/Diatrizoate Sodium 37% 120 ML Bottle PO ONE (22:27)
[2021-07-23] MEDS ORDERED: Piperacillin/Tazobactam 4.5 GM in Sodium Chloride 0.9% 100 ML IV ONE (22:54)
[2021-07-23] MEDS ORDERED: Lactated Ringers 1,000 ML IV SCH (23:15)
[2021-07-24] MEDS ORDERED: HYDROmorphone 0.5 MG/0.5 ML Syringe IVPUSH PRN ×2 (01:07→07:51)
[2021-07-24] MEDS ORDERED: Ondansetron 4 MG/2 ML SDV IVPUSH PRN ×2 (01:25→07:51)
[2021-07-24] MEDS ORDERED: Piperacillin/Tazobactam 4.5 GM in Sodium Chloride 0.9% 100 ML IV SCH (05:00)
[2021-07-24] MEDS: Piperacillin/Tazobactam 4.5 GM in Sodium Chloride 0.9% 100 ML IV SCH ×2 (06:00→16:05)
[2021-07-24] MEDS ORDERED: Bupivacaine 0.25%/EPINEPHrine 1:200,000 30 ML SDV ONE (06:59)
[2021-07-24] MEDS ORDERED: Lidocaine 1% with EPINEPHrine 1:100,000 10 ML MDV ONE ×2 (06:59)
[2021-07-24] MEDS ORDERED: fentaNYL 250 MCG/5 ML SDV ONE (07:00)
[2021-07-24] MEDS ORDERED: Midazolam 1 MG/ML 2 ML SDV ONE (07:00)
[2021-07-24] MEDS ORDERED: Rocuronium 50 MG/5 ML Vial ONE (07:00)
[2021-07-24] MEDS ORDERED: Propofol 200 MG/20 ML SDV ONE (07:00)
[2021-07-24] MEDS ORDERED: Succinylcholine/Sod PF 100 MG/5 ML SYRINGE IV ONE (07:02)
[2021-07-24] MEDS ORDERED: Lidocaine 1% 4 ML ONE (07:02)
[2021-07-24] MEDS ORDERED: Bupivacaine 0.5% 30 ML SDV ONE (07:20)
[2021-07-24] MEDS ORDERED: Lactated Ringers 1,000 ML ONE (07:39)
[2021-07-24] MEDS ORDERED: fentaNYL 100 MCG/2 ML SDV IVPUSH PRN (07:51)
[2021-07-24] MEDS ORDERED: HYDROmorphone 0.5 MG/0.5 ML Syringe ONE (07:52)
[2021-07-24] MEDS ORDERED: Ketorolac 30 MG/ML SDV ONE (08:03)
[2021-07-24] MEDS ORDERED: Ondansetron 4 MG/2 ML SDV ONE (08:03)
[2021-07-24] MEDS ORDERED: fentaNYL 100 MCG/2 ML SDV ONE (08:06)
[2021-07-24] MEDS ORDERED: Acetaminophen/oxyCODONE 325-5 MG Tab PO PRN (09:29)
== END 2021-07-24 14:36 | disposition home or self-care (01) ==
LOC: JD.ED 19:56 → JD.MS 23:13
PROVIDERS: ADMIT Surgery; ATTEND Surgery
DX: K35.30 Acute appendicitis with localized peritonitis, without perforation or gangrene (principal); E66.9 Obesity, unspecified; Z98.890 Other specified postprocedural states; Z01.812 Encounter for preprocedural laboratory examination; Z79.899 Other long term (current) drug therapy; Z20.822 Contact with and (suspected) exposure to COVID-19; Z68.32 Body mass index [BMI] 32.0-32.9, adult
CPT/HCPCS: 36415; 44970; 74177; 80053; 81001; 83690; 84703; 85025; 87635; 96365; 96375; 99285; G0378; J0330; J1170; J1885; J2250; J2405; J2543; J2704; J2710; J3010; J3490; J7030; J7120; Q9963; Q9967; 00840; 96374; U0002